=== PATIENT | female | born 2000 | race Two or more races ===

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

== ENCOUNTER 2020-04-11 15:37 | Outpatient (CLI) | payer OTHER ==
[~2020-04-11 15:37] MED LIST: AMOXICILLIN875 MG PO
== END 2020-04-11 15:50 | disposition home or self-care (01) ==
LOC: LAB 15:37
DX: U07.1 COVID-19 (principal); J11.1 Influenza due to unidentified influenza virus with other respiratory manifestations

== ENCOUNTER → 2020-05-14 07:06 | Outpatient (CLI) | payer OTHER | END | disposition home or self-care (01) | LOC: LAB 07:06 | PROVIDERS: ATTEND Dentist | DX: U07.1 COVID-19 (principal); Z20.89 Contact with and (suspected) exposure to other communicable diseases ==

== ENCOUNTER 2021-04-19 09:00 | Outpatient (CLI) | payer OTHER | END 2021-04-19 09:15 | disposition home or self-care (01) | LOC: PPH VACUNA 09:00 | PROVIDERS: ATTEND Emergency Medicine Pediatric Emergency Medicine | DX: Z23 Encounter for immunization (principal) ==

== ENCOUNTER 2023-03-16 15:34 | Outpatient (CLI) | payer OTHER | END 2023-03-16 15:41 | disposition home or self-care (01) | LOC: RAD 15:34 | PROVIDERS: ATTEND Plastic Surgery | DX: Z01.818 Encounter for other preprocedural examination (principal) ==